=== PATIENT | female | born 1990 | race Caucasian/White ===

== ENCOUNTER 2020-03-13 15:28 | Inpatient (IN) | payer OTHER ==
[2020-03-13] MEDS ORDERED: Ondansetron 4 MG/2 ML SDV IVPUSH PRN (16:17)
[2020-03-13] MEDS ORDERED: Nalbuphine 10 MG/ML Syringe IVPUSH PRN (16:17)
[2020-03-13] MEDS ORDERED: Sodium Chloride 0.9% 10 ML Syringe FLUSH PRN (16:17)
[2020-03-13] MEDS ORDERED: Oxytocin/Lactated Ringers 10 UNIT/1,000 ML BAG IV SCH ×2 (16:30→20:00)
[2020-03-13] MEDS: Lactated Ringers 1,000 ML IV SCH (21:03)
[2020-03-14] MEDS ORDERED: ePHEDrine 50 MG/ML SDV IVPUSH PRN (00:23)
[2020-03-14] MEDS ORDERED: diphenhydrAMINE 50 MG/ML SDV IVPUSH PRN (00:23)
[2020-03-14] MEDS ORDERED: fentaNYL 100 MCG/2 ML SDV EPIDUR PRN (00:23)
[2020-03-14] MEDS: Lactated Ringers 1,000 ML IV SCH ×3 (00:24→01:49)
[2020-03-14] MEDS: Bupivacaine/fentaNYL/NS 100 ML Bag EPIDUR PRN ×2 (00:29→08:52)
--- NOTE | 2020-03-14 01:11 | PCM.PREANE ---
Preanesthetic Assessment - Procedure Proposed Procedure: Continuous Labor Epidural - Anesthesia/Transfusion/Family Hx Anesthesia History: No Prior Anesthesia Transfusion History: No Prior Transfusion(s) - Review of Systems General: No Symptoms Pulmonary: No Symptoms Cardiovascular: No Symptoms Gastrointestinal: No Symptoms Neurological: No Symptoms Other: Reports: None - Physical Assessment NPO Status Date: 03/14/20 (full stomach) Vital Signs: Last Vital Signs Temp 37.2 C 03/13/20 16:17 Pulse 99 03/13/20 16:17 Resp 16 03/13/20 16:17 BP 142/82 H 03/13/20 16:17 Pulse Ox Height: 5 ft 5 in Weight: 87.09 kg ASA Class: 1 Mental Status: Alert & Oriented x3 Airway Class: Mallampati = 2 Dentition: Reports: Normal Dentition Thyro-Mental Finger Breadths: 3 Mouth Opening Finger Breadths: 3 ROM/Head Extension: Full Lungs: Clear to Auscultation, Normal Respiratory Effort Cardiovascular: Regular Rate, Regular Rhythm - Lab Values: Laboratory Last Values WBC 10.41 K/mm3 (3.98-10.04) H 03/13/20 16:40 RBC 4.17 M/mm3 (3.98-5.22) 03/13/20 16:40 Hgb 13.6 gm/dl (11.2-15.7) 03/13/20 16:40 Hct 39.9 % (34.1-44.9) 03/13/20 16:40 MCV 95.7 fl (79.4-94.8) H 03/13/20 16:40 MCH 32.6 pg (25.6-32.2) H 03/13/20 16:40 MCHC 34.1 g/dl (32.2-35.5) 03/13/20 16:40 RDW Std Deviation 43.8 fL (36.4-46.3) 03/13/20 16:40 Plt Count 202 K/mm3 (182-369) 03/13/20 16:40 MPV 11.5 fl (9.4-12.3) 03/13/20 16:40 Neut % (Auto) 64.0 % (34.0-71.1) 03/13/20 16:40 Lymph % (Auto) 25.2 % (19.3-51.7) 03/13/20 16:40 B[place] % (Auto) 9.0 % (4.7-12.5) 03/13/20 16:40 Eos % (Auto) 1.1 (0.7-5.8) 03/13/20 16:40 Baso % (Auto) 0.3 % (0.1-1.2) 03/13/20 16:40 Neut # (Auto) 6.67 K/mm3 (1.56-6.13) H 03/13/20 16:40 Lymph # (Auto) 2.62 K/mm3 (1.18-3.74) 03/13/20 16:40 [place] # (Auto) 0.94 K/mm3 (0.24-0.36) H 03/13/20 16:40 Eos # (Auto) 0.11 K/mm3 (0.04-0.36) 03/13/20 16:40 Baso # (Auto) 0.03 K/mm3 (0.01-0.08) 03/13/20 16:40 Manual Slide Review Not Reportable 03/13/20 16:40 RPR Non-reactive (NONREACTIVE) 03/13/20 16:40 SARS-CoV-2 RNA (MIKE) Negative (NEGATIVE) 03/13/20 16:30 - Allergies Allergies/Adverse Reactions: Allergies Allergy/AdvReac Type Severity Reaction Status Date / Time No Known Allergies Allergy Verified 03/13/20 16:15 - Acknowledgements Anesthesia Type Planned: Epidural Pt an Appropriate Candidate for the Planned Anesthesia: Yes Alternatives and Risks of Anesthesia Discussed w Pt/Guardian: Yes Pt/Guardian Understands and Agrees with Anesthesia Plan: Yes PreAnesthesia Questionnaire - Past Health History Medical/Surgical History: Denies 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 Smoking Status *Q: Never Smoker Second Hand Smoke Exposure: No Recreational Drug Use History: No - HOME MEDS Home Medications: Home Meds Pnv No.95/Ferrous Fum/Folic AC [ Tablet] 1 tab PO DAILY 03/13/20 [History] - CURRENT (IN HOUSE) MEDS Current Meds: Current Medications Diphenhydramine HCl (Benadryl) 25 mg IVPUSH Q6H PRN PRN Reason: pruritis Ephedrine Sulfate (Ephedrine Sulfate) 5 mg IVPUSH ASDIRECTED PRN PRN Reason: Hypotension Fentanyl (Sublimaze) 100 mcg EPIDUR Q3H PRN PRN Reason: Pain Last Admin: 03/14/20 00:29 Dose: 100 mcg Documented by: Fentanyl/Bupivacaine HCl (Fentanyl/Bupivacaine/Ns 2 Mcg-0.125% 100 Ml) 100 ml EPIDUR ASDIRECTED PRN PRN Reason: Pain Last Admin: 03/14/20 00:29 Dose: 100 ml Documented by: Oxytocin/Lactated Ringer's (Pitocin In Lr 10 Units/1,000 Ml) 10 unit in 1,000 mls @ 500 mls/hr IV .CONTINUOUS ADEOLA Lactated Ringer's (Ringers, Lactated) 1,000 mls @ 100 mls/hr IV ASDIRECTED ADEOLA Last Admin: 03/14/20 01:10 Dose: 100 mls/hr Documented by: Oxytocin/Lactated Ringer's (Pitocin In Lr 10 Units/1,000 Ml) 10 unit in 1,000 mls @ 12 mls/hr IV TITRATE ADEOLA; Protocol Last Titration: 03/13/20 23:50 Dose: 7 munits/min, 42 mls/hr Documented by: Nalbuphine HCl (Nubain) 10 mg IVPUSH Q2H PRN PRN Reason: Pain Ondansetron HCl (Zofran) 4 mg IVPUSH Q4H PRN PRN Reason: Nausea/Vomiting Sodium Chloride (Saline Flush) 10 ml FLUSH ASDIRECTED PRN PRN Reason: Keep Vein Open
--- NOTE | 2020-03-14 07:11 | PCM.LDHP ---
L&D History of Present Illness - General Date of Service: 03/13/20 Admit Problem/Dx: Patient Status Order with Admit Dx/Problem 03/13/20 16:21 Patient Status [ADT] Routine Admission Diagnosis/Problem Admission Diagnosis/Problem Labor established - History of Present Illness Introduction:: 30 year old here from clinic at 41w0d with SROM. Contractions increasing. 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: Social & Family History - Tobacco Use Smoking Status *Q: Never Smoker Second Hand Smoke Exposure: No - Caffeine Use Caffeine Use: Reports: None - Recreational Drug Use Recreational Drug Use: No H&P Review of Systems - Review of Systems: Review Of Systems: See Below General: Reports: No Symptoms HEENT: Reports: No Symptoms Pulmonary: Reports: No Symptoms Cardiovascular: Reports: No Symptoms Gastrointestinal: Reports: No Symptoms Genitourinary: Reports: No Symptoms Musculoskeletal: Reports: No Symptoms Skin: Reports: No Symptoms Psychiatric: Reports: No Symptoms Neurological: Reports: No Symptoms Hematologic/Lymphatic: Reports: No Symptoms Immunologic: Reports: No Symptoms L&D Exam - Exam Exam: See Below - Vital Signs Vital Signs: Last Vital Signs Temp 37.2 C 03/13/20 16:17 Pulse 99 03/13/20 16:17 Resp 16 03/13/20 16:17 BP 142/82 H 03/13/20 16:17 Pulse Ox Weight: 87.09 kg - OB Specific Contraction Intensity: Moderate Movement: Active Heart Tones: Present Heart Rate (FHR) Variability: Moderate (6-25 bmp) Presentation: Vertex - Tolentino Score Tolentino Score Cervix Position: Anterior Tolentino Score Consistency: Soft [place] Score Effacement: 31-50% Tolentino Score Dilation: 1-2 cm Tolentino Score 's Station: -3 Tolentino Score Total: 6 - Exam General: Alert, Oriented HEENT: PERRLA, Conjunctiva Clear, EACs Clear, EOMI, Hearing Intact, Mucosa Moist & [place], Nares Patent, Normal Nasal Septum, Posterior Pharynx Clear, TMs Clear Neck: Supple, Trachea Midline Lungs: Clear to Auscultation, Normal Respiratory Effort Cardiovascular: Regular Rate, Regular Rhythm GI/Abdominal Exam: Normal Bowel Sounds, Soft, Non-Tender, No Organomegaly, No Distention, No Abnormal Bruit, No Mass, Pelvis Stable Rectal Exam: Normal Exam, Normal Rectal Tone Extremities: Normal Inspection, Normal Range of Motion, Non-Tender, No Pedal Edema, Normal Capillary Refill Skin: Warm, Dry Psychiatric: Alert, Normal Affect, Normal Mood - Patient Data Lab Results Last 24 hrs: Laboratory Results - last 24 hr 03/13/20 03/13/20 03/13/20 Range/Units 16:30 16:40 16:40 WBC 10.41 H (3.98-10.04) K/mm3 RBC 4.17 (3.98-5.22) M/mm3 Hgb 13.6 (11.2-15.7) gm/dl Hct 39.9 (34.1-44.9) % MCV 95.7 H (79.4-94.8) fl MCH 32.6 H (25.6-32.2) pg MCHC 34.1 (32.2-35.5) g/dl RDW Std Deviation 43.8 (36.4-46.3) fL Plt Count 202 (182-369) K/mm3 MPV 11.5 (9.4-12.3) fl Neut % (Auto) 64.0 (34.0-71.1) % Lymph % (Auto) 25.2 (19.3-51.7) % [place] % (Auto) 9.0 (4.7-12.5) % Eos % (Auto) 1.1 (0.7-5.8) Baso % (Auto) 0.3 (0.1-1.2) % Neut # (Auto) 6.67 H (1.56-6.13) K/mm3 Lymph # (Auto) 2.62 (1.18-3.74) K/mm3 Collin # (Auto) 0.94 H (0.24-0.36) K/mm3 Eos # (Auto) 0.11 (0.04-0.36) K/mm3 Baso # (Auto) 0.03 (0.01-0.08) K/mm3 Manual Slide Review Not Reportable RPR Non-reactive (NONREACTIVE) SARS-CoV-2 RNA (MIKE) Negative (NEGATIVE) Result Diagrams: 03/13/20 16:40 Problem List Initiated/Reviewed/Updated: Yes Orders Last 24hrs: Active Orders 24 hr Category Date Time Status Patient Status [ADT] Routine ADT 03/13/20 16:21 Active Activity as Tolerated [RC] PFP Care 03/13/20 16:17 Active Communication Order [RC] ASDIRECTED Care 03/13/20 16:17 Active Heart Tones [RC] ASDIRECTED Care 03/13/20 16:17 Active Non Stress Test [RC] PER UNIT ROUTINE Care 03/13/20 16:17 Active Notify Provider [RC] ASDIRECTED Care 03/14/20 00:23 Active Notify Provider [RC] PFP Care 03/13/20 16:17 Active Notify Provider [RC] PRN Care 03/13/20 16:17 Active Peripheral IV Care [RC] . DIRECTED Care 03/13/20 16:17 Active Urinary Catheter Assessment [RC] ASDIRECTED Care 03/14/20 01:11 Active Urinary Catheter Insertion [Insert Urinary Catheter] [ Care 03/14/20 01:15 Ordered OM.PC] Q24H Vital Signs [RC] PER UNIT ROUTINE Care 03/13/20 16:17 Active Regular Diet [DIET] Diet 03/13/20 Dinner Active Bupivacaine/fentaNYL/NS [fentaNYL/Bupivacaine/NS 2 MCG- Med 03/14/20 00:23 Active 0.125% 100 ML] 100 ml EPIDUR ASDIRECTED PRN Lactated Ringers [Ringers, Lactated] 1,000 ml Med 03/13/20 16:30 Active IV ASDIRECTED Nalbuphine [Nubain] Med 03/13/20 16:17 Active 10 mg IVPUSH Q2H PRN Ondansetron [Zofran] Med 03/13/20 16:17 Active 4 mg IVPUSH Q4H PRN Oxytocin/Lactated Ringers [Pitocin in LR 10 Units/1,000 Med 03/13/20 16:30 Active ML] 10 unit in 1,000 ml IV .CONTINUOUS Oxytocin/Lactated Ringers [Pitocin in LR 10 Units/1,000 Med 03/13/20 20:00 Active ML] 10 unit in 1,000 ml IV TITRATE Sodium Chloride 0.9% [Saline Flush] Med 03/13/20 16:17 Active 10 ml FLUSH ASDIRECTED PRN diphenhydrAMINE [Benadryl] Med 03/14/20 00:23 Active 25 mg IVPUSH Q6H PRN ePHEDrine [ePHEDrine sulfate] Med 03/14/20 00:23 Active 5 mg IVPUSH ASDIRECTED PRN fentaNYL [Sublimaze] Med 03/14/20 00:23 Active 100 mcg EPIDUR Q3H PRN Electronic Heart Tones Ext w TOCO [WOMSER] Oth 03/13/20 16:17 Ordered Routine Electronic Heart Tones Internal [WOMSER] Per Unit Ot 03/13/20 16:17 Ordered Routine Peripheral IV Insertion Adult [OM.PC] Routine Ot 03/13/20 16:17 Ordered Resuscitation Status Routine Resus Stat 03/13/20 16:17 Ordered Medication Orders Diphenhydramine HCl (Benadryl) 25 mg IVPUSH Q6H PRN PRN Reason: pruritis Ephedrine Sulfate (Ephedrine Sulfate) 5 mg IVPUSH ASDIRECTED PRN PRN Reason: Hypotension Last Admin: 03/14/20 01:29 Dose: 5 mg Documented by: DAYLIN Fentanyl (Sublimaze) 100 mcg EPIDUR Q3H PRN PRN Reason: Pain Last Admin: 03/14/20 00:29 Dose: 100 mcg Documented by: DAYLIN Fentanyl/Bupivacaine HCl (Fentanyl/Bupivacaine/Ns 2 Mcg-0.125% 100 Ml) 100 ml EPIDUR ASDIRECTED PRN PRN Reason: Pain Last Admin: 03/14/20 00:29 Dose: 100 ml Documented by: DAYLIN Oxytocin/Lactated Ringer's (Pitocin In Lr 10 Units/1,000 Ml) 10 unit in 1,000 mls @ 500 mls/hr IV .CONTINUOUS ADEOLA Lactated Ringer's (Ringers, Lactated) 1,000 mls @ 100 mls/hr IV ASDIRECTED ADEOLA Last Admin: 03/14/20 01:49 Dose: 100 mls/hr Documented by: Infusion: 03/14/20 01:49 Dose: 100 mls/hr Documented by: Admin: 03/14/20 01:10 Dose: 100 mls/hr Documented by: Infusion: 03/14/20 01:10 Dose: 100 mls/hr Documented by: Admin: 03/14/20 00:24 Dose: 100 mls/hr Documented by: Infusion: 03/14/20 00:24 Dose: 100 mls/hr Documented by: Admin: 03/13/20 21:03 Dose: 100 mls/hr Documented by: DAYLIN Oxytocin/Lactated Ringer's (Pitocin In Lr 10 Units/1,000 Ml) 10 unit in 1,000 mls @ 12 mls/hr IV TITRATE ADEOLA; Protocol Last Titration: 03/14/20 06:42 Dose: 4 munits/min, 24 mls/hr Documented by: Titration: 03/14/20 05:32 Dose: 2 munits/min, 12 mls/hr Documented by: Titration: 03/14/20 03:42 Dose: 0 munits/min, 0 mls/hr Documented by: Titration: 03/13/20 23:50 Dose: 7 munits/min, 42 mls/hr Documented by: Titration: 03/13/20 22:14 Dose: 6 munits/min, 36 mls/hr Documented by: Titration: 03/13/20 21:36 Dose: 4 munits/min, 24 mls/hr Documented by: Admin: 03/13/20 21:02 Dose: 2 munits/min, 12 mls/hr Documented by: DAYLIN Nalbuphine HCl (Nubain) 10 mg IVPUSH Q2H PRN PRN Reason: Pain Ondansetron HCl (Zofran) 4 mg IVPUSH Q4H PRN PRN Reason: Nausea/Vomiting Sodium Chloride (Saline Flush) 10 ml FLUSH ASDIRECTED PRN PRN Reason: Keep Vein Open Assessment/Plan Comment:: Term SROM. Augment as needed. Anticipate
[2020-03-14] MEDS ORDERED: Acetaminophen 325 MG Tab PO PRN (07:25)
--- NOTE | 2020-03-14 10:52 | PCM.PNLD ---
Labor Progress Note - VS & Meds Vital Signs: Last Vital Signs Temp 37.2 C 03/13/20 16:17 Pulse 99 03/13/20 16:17 Resp 16 03/13/20 16:17 BP 142/82 H 03/13/20 16:17 Pulse Ox Active Medications: Current Medications Acetaminophen (Tylenol) 650 mg PO Q4H PRN PRN Reason: Pain Last Admin: 03/14/20 07:50 Dose: 650 mg Documented by: Diphenhydramine HCl (Benadryl) 25 mg IVPUSH Q6H PRN PRN Reason: pruritis Ephedrine Sulfate (Ephedrine Sulfate) 5 mg IVPUSH ASDIRECTED PRN PRN Reason: Hypotension Last Admin: 03/14/20 01:29 Dose: 5 mg Documented by: Fentanyl (Sublimaze) 100 mcg EPIDUR Q3H PRN PRN Reason: Pain Last Admin: 03/14/20 00:29 Dose: 100 mcg Documented by: Fentanyl/Bupivacaine HCl (Fentanyl/Bupivacaine/Ns 2 Mcg-0.125% 100 Ml) 100 ml EPIDUR ASDIRECTED PRN PRN Reason: Pain Last Admin: 03/14/20 08:52 Dose: 100 ml Documented by: Oxytocin/Lactated Ringer's (Pitocin In Lr 10 Units/1,000 Ml) 10 unit in 1,000 mls @ 500 mls/hr IV .CONTINUOUS ADEOLA Lactated Ringer's (Ringers, Lactated) 1,000 mls @ 100 mls/hr IV ASDIRECTED ADEOLA Last Admin: 03/14/20 01:49 Dose: 100 mls/hr Documented by: Oxytocin/Lactated Ringer's (Pitocin In Lr 10 Units/1,000 Ml) 10 unit in 1,000 mls @ 12 mls/hr IV TITRATE ADEOLA; Protocol Last Titration: 03/14/20 07:54 Dose: 6 munits/min, 36 mls/hr Documented by: Nalbuphine HCl (Nubain) 10 mg IVPUSH Q2H PRN PRN Reason: Pain Ondansetron HCl (Zofran) 4 mg IVPUSH Q4H PRN PRN Reason: Nausea/Vomiting Sodium Chloride (Saline Flush) 10 ml FLUSH ASDIRECTED PRN PRN Reason: Keep Vein Open - Uterine Contractions Uterine Monitoring Mode: External [place] Contraction Intensity: Moderate Uterine Resting Tone: Soft - Monitoring Heart Rate (FHR) Variability: Moderate (6-25 bmp) - Vaginal Exam Dilation (cm): 9 Effacement (Percent): 90 Station: -2 Cervical Position: Midposition Sterile Vaginal Exam Performed By: Suzna Santos - Labor Progress (Free Text) Labor Progress: Progressing well. Comfortable with epidural.
--- NOTE | 2020-03-14 10:55 | PCM.SN.2 ---
- Free Text/Narrative Note: Stage I - Patient with SROM at 41 weeks. Admitted. Augmentation with pitocin. Epidural. Progressed to complete with overall reassuring heart tones. Stage II - of viable male, weight pending, 8/9 APGARS at 1030. Head delivered in controlled manner. Body and shoulders atraumatically. To maternal abdomen. Positive cry. Pitocin initiated. Cord clamped and cut at 1 minute of life. Cord blood collected. Stage III - of intact placenta. 3vc. 2nd degree midline laceration and small left labial laceration repaired with 3-0 vicryl in usual fashion. EBL 200.
[2020-03-14] MEDS ORDERED: Witch Hazel Medicated Pads 40/Jar TOP PRN (11:21)
[2020-03-14] MEDS ORDERED: Benzocaine/Menthol 20%-0.5% Spray 56 GM Canister TOP PRN (11:21)
[2020-03-14] MEDS: Ibuprofen 600 MG Tab PO PRN ×2 (15:19→21:36)
[2020-03-14] MEDS: Docusate Sodium 100 MG Cap PO PRN (15:35)
[2020-03-15] MEDS: Docusate Sodium 100 MG Cap PO PRN ×2 (03:42→21:05)
[2020-03-15] MEDS: Ibuprofen 600 MG Tab PO PRN ×3 (03:42→21:05)
--- NOTE | 2020-03-15 08:02 | PCM.PNPP ---
- General Info Date of Service: 03/15/20 Functional Status: Reports: Pain Controlled - Review of Systems General: Reports: No Symptoms HEENT: Reports: No Symptoms Pulmonary: Reports: No Symptoms Cardiovascular: Reports: No Symptoms Gastrointestinal: Reports: No Symptoms Genitourinary: Reports: No Symptoms Musculoskeletal: Reports: No Symptoms Skin: Reports: No Symptoms Neurological: Reports: No Symptoms Psychiatric: Reports: No Symptoms - General Info Date of Service: 03/15/20 - Patient Data Vital Signs - Most Recent: Last Vital Signs Temp 36.3 C 03/15/20 03:04 Pulse 91 03/15/20 03:04 Resp 16 03/15/20 03:04 BP 128/63 03/15/20 03:04 Pulse Ox 99 03/15/20 03:04 Weight - Most Recent: 87.09 kg Med Orders - Current: Current Medications Benzocaine/Menthol (Dermoplast Pain Relief [place]) 0 gm TOP ASDIRECTED PRN PRN Reason: Perineal Comfort Measure Last Admin: 03/14/20 12:53 Dose: 1 spray Documented by: Docusate Sodium (Colace) 100 mg PO BID PRN PRN Reason: Constipation Last Admin: 03/15/20 03:42 Dose: 100 mg Documented by: Ibuprofen (Motrin) 600 mg PO Q6H PRN PRN Reason: Mild pain or fever Last Admin: 03/15/20 03:42 Dose: 600 mg Documented by: Harrison Mcguire (Alex) 1 pad TOP ASDIRECTED PRN PRN Reason: Pain Last Admin: 03/14/20 12:54 Dose: 1 pad Documented by: Discontinued Medications Acetaminophen (Tylenol) 650 mg PO Q4H PRN PRN Reason: Pain Last Admin: 03/14/20 07:50 Dose: 650 mg Documented by: Diphenhydramine HCl (Benadryl) 25 mg IVPUSH Q6H PRN PRN Reason: pruritis Ephedrine Sulfate (Ephedrine Sulfate) 5 mg IVPUSH ASDIRECTED PRN PRN Reason: Hypotension Last Admin: 03/14/20 01:29 Dose: 5 mg Documented by: Fentanyl (Sublimaze) 100 mcg EPIDUR Q3H PRN PRN Reason: Pain Last Admin: 03/14/20 00:29 Dose: 100 mcg Documented by: Fentanyl/Bupivacaine HCl (Fentanyl/Bupivacaine/Ns 2 Mcg-0.125% 100 Ml) 100 ml EPIDUR ASDIRECTED PRN PRN Reason: Pain Last Admin: 03/14/20 08:52 Dose: 100 ml Documented by: Oxytocin/Lactated Ringer's (Pitocin In Lr 10 Units/1,000 Ml) 10 unit in 1,000 mls @ 500 mls/hr IV .CONTINUOUS ADEOLA Last Admin: 03/14/20 11:19 Dose: 500 mls/hr Documented by: Lactated Ringer's (Ringers, Lactated) 1,000 mls @ 100 mls/hr IV ASDIRECTED ADEOLA Last Admin: 03/14/20 01:49 Dose: 100 mls/hr Documented by: Oxytocin/Lactated Ringer's (Pitocin In Lr 10 Units/1,000 Ml) 10 unit in 1,000 mls @ 12 mls/hr IV TITRATE ADEOLA; Protocol Last Titration: 03/14/20 10:30 Dose: 166.5 munits/min, 999 mls/hr Documented by: Nalbuphine HCl (Nubain) 10 mg IVPUSH Q2H PRN PRN Reason: Pain Ondansetron HCl (Zofran) 4 mg IVPUSH Q4H PRN PRN Reason: Nausea/Vomiting Sodium Chloride (Saline Flush) 10 ml FLUSH ASDIRECTED PRN PRN Reason: Keep Vein Open - Infant Interaction Support Person: - Recovery Exam Fundal Tone: Firm Fundal Level: At Umbilicus Fundal Placement: Midline Lochia Amount: Small Lochia Color: Rubra/Red Perineum Description: Other (see below) Other Perinuem Description: 2nd degree with repair Bladder Status: Voiding - Exam General: Alert, Oriented HEENT: Pupils Equal Neck: Supple Lungs: Clear to Auscultation, Normal Respiratory Effort Cardiovascular: Regular Rate, Regular Rhythm GI/Abdominal Exam: Normal Bowel Sounds, Soft, Non-Tender, No Organomegaly, No Distention, No Abnormal Bruit, No Mass, Pelvis Stable Extremities: Normal Inspection, Normal Range of Motion, Non-Tender, No Pedal Edema, Normal Capillary Refill Neurological: No New Focal Deficit Psy/Mental Status: Alert, Normal Affect, Normal Mood - Problem List Review Problem List Initiated/Reviewed/Updated: Yes - My Orders Last 24 Hours: My Active Orders 03/14/20 Lunch Regular Diet [DIET] 03/14/20 11:21 Benzocaine/Menthol [Dermoplast Pain Relief [place]] See Dose Instructions TOP ASDIRECTED PRN Docusate Sodium [Colace] 100 mg PO BID PRN Ibuprofen [Motrin] 600 mg PO Q6H PRN witch Luis Fernando [Tucks] 1 pad TOP ASDIRECTED PRN Heat Therapy [OM.PC] PRN 03/14/20 11:21 Activity as Tolerated [RC] PER UNIT ROUTINE Vital Signs [RC] ,,, Assess Lochia [WOMSER] Per Unit Routine Assess Uterine Involution [WOMSER] Per Unit Routine Breast Pump [WOMSER] Per Unit Routine Medication Administration Instruction [OM.PC] Routine Perineal Care [OM.PC] Per Unit Routine Sitz Bath [OM.PC] Per Unit Routine 03/15/20 11:21 Heat Therapy [OM.PC] PRN - Plan Plan:: PPD 1. Doing great. Plan discharge tomorrow.
[2020-03-16] MEDS: Ibuprofen 600 MG Tab PO PRN (03:37)
--- NOTE | 2020-03-16 07:20 | PCM.DCSUM1 ---
Discharge Summary - Hospital Course Brief History: Admitted with SROM at 41 weeks. Uncomplicated labor, delivery and Diagnosis: Stroke: No - Discharge Data Discharge Date: 03/16/20 Discharge Disposition: Home, Self-Care 01 Condition: Good - Referral to Home Health Primary Care Physician: Suzan Santos MD - Patient Summary/Data Hospital Course: Stage I - Patient with SROM at 41 weeks. Admitted. Augmentation with pitocin. Epidural. Progressed to complete with overall reassuring heart tones. Stage II - of viable male, weight pending, 8/9 APGARS at 1030. Head delivered in controlled manner. Body and shoulders atraumatically. To maternal abdomen. Positive cry. Pitocin initiated. Cord clamped and cut at 1 minute of life. Cord blood collected. Stage III - of intact placenta. 3vc. 2nd degree midline laceration and small left labial laceration repaired with 3-0 vicryl in usual fashion. EBL 200. - nursing going well. Mood good - Patient Instructions Diet: Usual Diet as Tolerated Activity: No Strenuous Activities Activity, Other: pelvic rest Driving: May Drive Today Notify Provider of: Fever, Increased Pain, Swelling and Redness, Drainage - Discharge Plan *PRESCRIPTION DRUG MONITORING PROGRAM REVIEWED*: No Home Medications: Home Meds Pnv No.95/Ferrous Fum/Folic AC [ Tablet] 1 tab PO DAILY 03/13/20 [History] Referrals: Suzan Santos MD [Primary Care Provider] - (2-3 weeks) - Discharge Summary/Plan Comment DC Time >30 min.: No - General Info Date of Service: 03/16/20 Functional Status: Reports: Pain Controlled - Review of Systems General: Reports: No Symptoms HEENT: Reports: No Symptoms Pulmonary: Reports: No Symptoms Cardiovascular: Reports: No Symptoms Gastrointestinal: Reports: No Symptoms Genitourinary: Reports: No Symptoms Musculoskeletal: Reports: No Symptoms Skin: Reports: No Symptoms Neurological: Reports: No Symptoms Psychiatric: Reports: No Symptoms - Patient Data Vitals - Most Recent: Last Vital Signs Temp 36.4 C 03/16/20 02:44 Pulse 76 03/16/20 02:44 Resp 14 03/16/20 02:44 BP 121/66 03/16/20 02:44 Pulse Ox 98 03/16/20 02:44 Weight - Most Recent: 87.09 kg Med Orders - Current: Current Medications Benzocaine/Menthol (Dermoplast Pain Relief [place]) 0 gm TOP ASDIRECTED PRN PRN Reason: Perineal Comfort Measure Last Admin: 03/14/20 12:53 Dose: 1 spray Documented by: Docusate Sodium (Colace) 100 mg PO BID PRN PRN Reason: Constipation Last Admin: 03/15/20 21:05 Dose: 100 mg Documented by: Ibuprofen (Motrin) 600 mg PO Q6H PRN PRN Reason: Mild pain or fever Last Admin: 03/16/20 03:37 Dose: 600 mg Documented by: Harrison Mcguire (Vivekcks) 1 pad TOP ASDIRECTED PRN PRN Reason: Pain Last Admin: 03/14/20 12:54 Dose: 1 pad Documented by: Discontinued Medications Acetaminophen (Tylenol) 650 mg PO Q4H PRN PRN Reason: Pain Last Admin: 03/14/20 07:50 Dose: 650 mg Documented by: Diphenhydramine HCl (Benadryl) 25 mg IVPUSH Q6H PRN PRN Reason: pruritis Ephedrine Sulfate (Ephedrine Sulfate) 5 mg IVPUSH ASDIRECTED PRN PRN Reason: Hypotension Last Admin: 03/14/20 01:29 Dose: 5 mg Documented by: Fentanyl (Sublimaze) 100 mcg EPIDUR Q3H PRN PRN Reason: Pain Last Admin: 03/14/20 00:29 Dose: 100 mcg Documented by: Fentanyl/Bupivacaine HCl (Fentanyl/Bupivacaine/Ns 2 Mcg-0.125% 100 Ml) 100 ml EPIDUR ASDIRECTED PRN PRN Reason: Pain Last Admin: 03/14/20 08:52 Dose: 100 ml Documented by: Oxytocin/Lactated Ringer's (Pitocin In Lr 10 Units/1,000 Ml) 10 unit in 1,000 mls @ 500 mls/hr IV .CONTINUOUS ADEOLA Last Admin: 03/14/20 11:19 Dose: 500 mls/hr Documented by: Lactated Ringer's (Ringers, Lactated) 1,000 mls @ 100 mls/hr IV ASDIRECTED ADEOLA Last Admin: 03/14/20 01:49 Dose: 100 mls/hr Documented by: Oxytocin/Lactated Ringer's (Pitocin In Lr 10 Units/1,000 Ml) 10 unit in 1,000 mls @ 12 mls/hr IV TITRATE ADEOLA; Protocol Last Titration: 03/14/20 10:30 Dose: 166.5 munits/min, 999 mls/hr Documented by: Nalbuphine HCl (Nubain) 10 mg IVPUSH Q2H PRN PRN Reason: Pain Ondansetron HCl (Zofran) 4 mg IVPUSH Q4H PRN PRN Reason: Nausea/Vomiting Sodium Chloride (Saline Flush) 10 ml FLUSH ASDIRECTED PRN PRN Reason: Keep Vein Open - Exam General: Reports: Alert, Oriented HEENT: Reports: Pupils Equal, Pupils Reactive, EOMI, Mucous Membr. Moist/[place] Neck: Reports: Supple Lungs: Reports: Clear to Auscultation, Normal Respiratory Effort Cardiovascular: Reports: Regular Rate, Regular Rhythm GI/Abdominal Exam: Normal Bowel Sounds, Soft, Non-Tender, No Organomegaly, No Distention, No Abnormal Bruit, No Mass, Pelvis Stable Extremities: Normal Inspection, Normal Range of Motion, Non-Tender, No Pedal Edema, Normal Capillary Refill Skin: Reports: Warm, Dry, Intact Wound/Incisions: Reports: Healing Well Neurological: Reports: No New Focal Deficit Psy/Mental Status: Reports: Alert, Normal Affect, Normal Mood
== END 2020-03-16 09:05 | disposition home or self-care (01) | DRG 807 ==
LOC: JD.OBCHECK 15:28 → JD.OB 15:29 → JD.OBCHECK 16:21 → JD.OB 16:28 → OBSVTOIN 03-14 10:30 → JD.OB 03-14 10:31
PROVIDERS: ADMIT Obstetrics & Gynecology; ATTEND Obstetrics & Gynecology
PROC: 10E0XZZ Delivery of Products of Conception, External Approach (ICD-10-PCS; principal; 2020-03-14)
PROC: 0KQM0ZZ Repair Perineum Muscle, Open Approach (ICD-10-PCS; 2020-03-14)
PROC: 3E0R3BZ Introduction of Anesthetic Agent into Spinal Canal, Percutaneous Approach (ICD-10-PCS; 2020-03-14)
PROC: 00HU33Z Insertion of Infusion Device into Spinal Canal, Percutaneous Approach (ICD-10-PCS; 2020-03-14)
DX: O48.0 Post-term pregnancy (principal); Z37.0 Single live birth; Z3A.41 41 weeks gestation of pregnancy; O70.1 Second degree perineal laceration during delivery; Z20.828 Contact with and (suspected) exposure to other viral communicable diseases
CPT/HCPCS: 01967; 36415; 51702; 59025; 59409; 85025; 86592; A9270-GY; J2590; J3010; J7120; U0002

== ENCOUNTER 2023-07-11 03:11 | Inpatient (IN) | payer OTHER ==
[2023-07-11] MEDS ORDERED: Nalbuphine HCl 10 MG/ 1ML Amp IVPUSH PRN (03:30)
[2023-07-11] MEDS ORDERED: Lidocaine 1% 50 ML MDV INJECT PRN (03:30)
[2023-07-11] MEDS ORDERED: Oxytocin/Lactated Ringers 30 UNIT/500 ML BAG IV SCH (03:30)
[2023-07-11] MEDS ORDERED: Ondansetron 4 MG/2 ML SDV IVPUSH PRN (03:30)
[2023-07-11] MEDS ORDERED: Sodium Chloride 0.9% 10 ML Syringe FLUSH PRN (03:30)
[2023-07-11] MEDS ORDERED: Lactated Ringers 1,000 ML IV SCH ×2 (03:30→04:30)
[2023-07-11 03:49] LABS: BASOPHILS ABSOLUTE AUTO 0.1 K/mm3 (0.0-0.2); BASOPHILS PERCENT AUTO 0.5 % (0.0-1.0); EOSINOPHILS ABSOLUTE AUTO 0.1 K/mm3 (0.0-0.4); EOSINOPHILS PERCENT AUTO 0.6 % (0.0-6.0); HEMATOCRIT 38.3 % (37.0-47.0); HEMOGLOBIN 13.1 gm/dl (12.0-16.0); IMMATURE GRAN ABSOLUTE AUTO 0.07 K/mm3 (0.00-0.05); IMMATURE GRAN PERCENT AUTO 0.5 % (0.0-0.4); LYMPHOCYTES ABSOLUTE AUTO 2.4 K/mm3 (1.0-4.8); LYMPHOCYTES PERCENT AUTO 18.8 % (24.0-44.0); MEAN CORPUSCULAR HEMOGLOBIN 32.8 pg (28.0-32.0); MEAN CORPUSCULAR HGB CONC 34.2 g/dl (32.0-36.0); MEAN CORPUSCULAR VOLUME 95.8 fl (83.0-99.0); MEAN PLATELET VOLUME 10.8 fl (9.4-12.3); MONOCYTES PERCENT AUTO 7.5 % (0.0-8.0); NEUTROPHILS ABSOLUTE AUTO 9.4 K/mm3 (1.8-7.7); NEUTROPHILS PERCENT AUTO 72.1 % (41.0-71.0); PLATELET COUNT,PLT 202 K/mm3 (150-400); WHITE BLOOD CELL COUNT,WBC 12.98 K/mm3 (3.9-11.3)
[2023-07-11] MEDS ORDERED: fentaNYL 100 MCG/2 ML SDV ONE (04:06)
[2023-07-11] MEDS ORDERED: Bupivacaine/fentaNYL/NS 100 ML Bag EPIDUR PRN (04:08)
[2023-07-11] MEDS ORDERED: ePHEDrine 50 MG/ML SDV IVPUSH PRN (04:08)
[2023-07-11] MEDS ORDERED: fentaNYL 100 MCG/2 ML SDV EPIDUR PRN (04:08)
[2023-07-11] MEDS ORDERED: diphenhydrAMINE 50 MG/ML SDV IVPUSH PRN (04:08)
[2023-07-11] MEDS ORDERED: Lidocaine 1% 10 ML MDV ONE (08:00)
[2023-07-11] MEDS ORDERED: ePHEDrine 50 MG/ML SDV ONE (08:00)
[2023-07-11] MEDS ORDERED: Sodium Chloride 0.9% 10 ML Syringe FLUSH SCH (09:00)
[2023-07-11] MEDS ORDERED: Benzocaine/Menthol 20%-0.5% Spray 78 GM Cannister TOP PRN (11:43)
[2023-07-11] MEDS ORDERED: Witch Hazel Medicated Pads 40/Jar TOP PRN (11:43)
[2023-07-11] MEDS ORDERED: Ibuprofen 600 MG Tab PO PRN (11:43)
[2023-07-11] MEDS ORDERED: Docusate Sodium 100 MG Cap PO PRN (11:43)
[2023-07-11] MEDS ORDERED: Acetaminophen 325 MG Tab PO PRN (11:43)
== END 2023-07-12 13:05 | disposition home or self-care (01) | DRG 807 ==
LOC: JD.OBCHECK 03:11 → JD.OB 03:16 → JD.OBCHECK 03:55 → JD.OB 03:56 → OBSVTOIN 10:42 → JD.OB 10:43
PROVIDERS: ADMIT Obstetrics & Gynecology; ATTEND Obstetrics & Gynecology
PROC: 10E0XZZ Delivery of Products of Conception, External Approach (ICD-10-PCS; principal; 2023-07-11)
PROC: 0KQM0ZZ Repair Perineum Muscle, Open Approach (ICD-10-PCS; 2023-07-11)
PROC: 10907ZC Drainage of Amniotic Fluid, Therapeutic from Products of Conception, Via Natural or Artificial Opening (ICD-10-PCS; 2023-07-11)
PROC: 3E0R3BZ Introduction of Anesthetic Agent into Spinal Canal, Percutaneous Approach (ICD-10-PCS; 2023-07-11)
PROC: 00HU33Z Insertion of Infusion Device into Spinal Canal, Percutaneous Approach (ICD-10-PCS; 2023-07-11)
DX: O48.0 Post-term pregnancy (principal); Z37.0 Single live birth; Z3A.40 40 weeks gestation of pregnancy; O70.1 Second degree perineal laceration during delivery
CPT/HCPCS: 36415; 51702; 59025; 59409; 85025; 86592; J3490; J7120; J7999